=== PATIENT | male | born 1990 ===

== ENCOUNTER 2023-11-18 19:10 | Outpatient (REF) | payer BC, SELFPAY ==
--- OUTSIDE RECORDS SUMMARY | 2023-11-19 19:16 | XMS_ITS | Continuity of Care Document ---
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 [address], [place] [address] Encounter Diagnosis Viral illness(Discharge Diagnosis) - 12/10/21 Discharge Disposition: Home or Self Care Attending Physician: Myles Sim MD Admitting Physician: Myles Sim MD Allergies, Adverse Reactions, Alerts No Known Medication Allergies Assessment and Plan Diagnostic Tests Pending * Anaplasma phagocytophilum Ab -[place] 12/10/21 * Babesia microti Ab S-[place] 12/10/21 * Ehrlichia Chaffeensis (HME) Ab S-[place] 12/10/21 * Babesia species PCR B-[place] 12/10/21 * Borrelia miyamotoi PCR B-[place] 12/10/21 * Ehrlichia-Anaplasma PCR B-[place] 12/10/21 * Lyme Disease Ab, Western Blot-[place] 12/10/21 Mental Status 12/10/21 Orientation Assessment Oriented x 4 Problem List No Known Problems Results Laboratory List Name Date Lyme Disease Serology, Serum 12/10/21 Urinalysis Reflex Microscopic, Culture i f 12/10/21 Respiratory PCR Panel 12/10/21 .Estimated Glomerular Filtration Rate Auto Differential 12/10/21 CBC Auto Diff reflex Manual Diff 12/10/21 Comprehensive Metabolic Panel 12/10/21 Lactate Dehydrogenase (LDH) 12/10/21 SARS-CoV-2 & Influenza A/B (FLU/COVID PC R) 12/10/21 Most recent to oldest [Reference Range]: 1 2 Adenovirus PCR Not Detected *NA* (12/10/21 9:21 AM) Bordetella parapertussis ([id number]) PCR No t Detected *NA* (12/10/21 9:21 AM) Bordetella pertussis (ptxP) PCR Not Dete cted *NA* (12/10/21 9:21 AM) Chlamydia pneumoniae PCR Not Detected *NA* (12/10/21 9:21 AM) Coronavirus 229E PCR Not Detected *NA* (12/10/21 9:21 AM) Coronavirus HKU1 PCR Not Detected *NA* (12/10/21 9:21 AM) Coronavirus NL63 PCR Not Detected *NA* (12/10/21 9:21 AM) Coronavirus OC43 PCR Not Detected *NA* (12/10/21 9:21 AM) Human Metapneumovirus PCR Not Detected *NA* (12/10/21 9:21 AM) Human Rhinovirus/Enterovirus PCR Detecte d *ABN* (12/10/21 9:21 AM) Influenza A PCR Not Detected *NA* (12/10/21 9:21 AM) Influenza B PCR Not Detected *NA* (12/10/21 9:21 AM) Mycoplasma pneumoniae PCR Not Detected *NA* (12/10/21 9:21 AM) Parainfluenza Virus 1 PCR Not Detected *NA* (12/10/21 9:21 AM) Parainfluenza Virus 2 PCR Not Detected *NA* (12/10/21 9:21 AM) Parainfluenza Virus 3 PCR Not Detected *NA* (12/10/21 9:21 AM) Parainfluenza Virus 4 PCR Not Detected *NA* (12/10/21 9:21 AM) Respiratory Syncytial Virus PCR Not Dete cted *NA* (12/10/21 9:21 AM) Coronavirus SARS-CoV-2 [Not Detected] No t Detected 1 *NA* (12/10/21 9:21 AM) Not Detected 2 *NA* (12/10/21 7:20 AM) UA Appear Clear *NA* (12/10/21 12:21 PM) UA Bili Negative *NA* (12/10/21 12:21 PM) UA Blood Negative *NA* (12/10/21 12:21 PM) UA Color Yellow *NA* (12/10/21 12:21 PM) UA Glucose Negative *NA* (12/10/21 12:21 PM) UA Ketones 1+ *ABN* (12/10/21 12:21 PM) UA Leuk Est Negative *NA* (12/10/21 12:21 PM) UA Nitrite Negative *NA* (12/10/21 12:21 PM) UA Protein Negative *NA* (12/10/21 12:21 PM) UA Urobilinogen 0.2 3 (12/10/21 12:21 PM) Microscopic Indicated No *NA* (12/10/21 12:21 PM) AGAP 9 *NA* (12/10/21 8:46 AM) A/G Ratio 1.1 *NA* (12/10/21 8:46 AM) BUN/Creat Ratio 13 *NA* (12/10/21 8:46 AM) RBC [4.50-5.90 x10(6)/mcL] 4.49 x10(6)/m cL *LOW* (12/10/21 8:46 AM) RDW [11.5-14.5 %] 11.9 % (12/10/21 8:46 AM) Sodium Level [136-145 mmol/L] 135 mmol/L *LOW* (12/10/21 8:46 AM) Total Protein [6.4-8.2 gm/dL] 7.3 gm/dL (12/10/21 8:46 AM) AST [15-37 IU/L] 22 IU/L (12/10/21 8:46 AM) Bili Total [0.20-1.00 mg/dL] 1.13 mg/dL *HI* (12/10/21 8:46 AM) CO2 [21-32 mmol/L] 27 mmol/L (12/10/21 8:46 AM) UA pH [5.0-9.0] 6.0 (12/10/21 12:21 PM) Albumin Level [3.4-5.0 gm/dL] 3.9 gm/dL (12/10/21 8:46 AM) Alk Phos [45-117 unit/L] 63 unit/L (12/10/21 8:46 AM) ALT [13-61 IU/L] 29 IU/L (12/10/21 8:46 AM) Hct [41.0-53.0 %] 41.3 % (12/10/21 8:46 AM) Hgb [13.9-16.3 gm/dL] 14.2 gm/dL (12/10/21 8:46 AM) LDH [87-241 IU/L] 198 IU/L (12/10/21 8:46 AM) MCH [26.0-34.0 pg] 31.6 pg (12/10/21 8:46 AM) MCHC [31.0-37.0 gm/dL] 34.4 gm/dL (12/10/21 8:46 AM) MCV [80-100 fL] 92 fL (12/10/21 8:46 AM) MPV [9.2-12.7 fL] 10.0 fL (12/10/21 8:46 AM) Glucose Level [74-106 mg/dL] 138 mg/dL *HI* (12/10/21 8:46 AM) Platelet [150-350 x10(3)/mcL] 231 x10(3) /mcL (12/10/21 8:46 AM) Potassium Level [3.5-5.1 mmol/L] 4.1 mmo l/L (12/10/21 8:46 AM) UA Spec Grav [1.000-1.060] 1.012 (12/10/21 12:21 PM) WBC [4.5-11.0 x10(3)/mcL] 12.8 x10(3)/mc L *HI* (12/10/21 8:46 AM) BUN [7-18 mg/dL] 14 mg/dL (12/10/21 8:46 AM) Calcium Level [8.5-10.1 mg/dL] 8.9 mg/dL (12/10/21 8:46 AM) Chloride [98-107 mmol/L] 103 mmol/L (12/10/21 8:46 AM) eGFR AA >60 mL/min/1.73 m2 *NA* (12/10/21 8:46 AM) eGFR DAVE >60 mL/min/1.73 m2 *NA* (12/10/21 8:46 AM) Neutrophil Absolute [1.50-7.80 x10(3)/mc L] 11.31 x10(3)/mcL *HI* (12/10/21 8:46 AM) Lymphocyte Absolute [1.10-4.80 x10(3)/mc L] 0.68 x10(3)/mcL *LOW* (12/10/21 8:46 AM) Monocyte Absolute 0.73 x10(3)/mcL *NA* (12/10/21 8:46 AM) Eosinophil Absolute 0.04 x10(3)/mcL *NA* (12/10/21 8:46 AM) Basophil Absolute 0.02 x10(3)/mcL *NA* (12/10/21 8:46 AM) Imm Gran Absolute 0.06 /mcL *NA* (12/10/21 8:46 AM) NRBC % [0.0-0.2 %] 0.0 % (12/10/21 8:46 AM) Culture Indicated Not Indicated *NA* (12/10/21 12:21 PM) Osmol Calculated 273 mOsm/kg *NA* (12/10/21 8:46 AM) Eosinophil Auto [1.0-4.0 %] 0.3 % *LOW* (12/10/21 8:46 AM) Immature Granulocyte Auto 0 % *NA* (12/10/21 8:46 AM) Lymphocyte Auto [24.0-44.0 %] 5.3 % *LOW* (12/10/21 8:46 AM) Monocyte Auto [2.0-11.0 %] 5.7 % (12/10/21 8:46 AM) Neutrophil Auto [31.0-76.0 %] 88.0 % *HI* (12/10/21 8:46 AM) Basophil Auto [0.0-2.0 %] 0.2 % (12/10/21 8:46 AM) Creatinine [0.6-1.3 mg/dL] 1.1 mg/dL (12/10/21 8:46 AM) Lyme IgG Presumptive Pos 4 *NA* (12/10/21 12:31 PM) Lyme IgM Negative 5 *NA* (12/10/21 12:31 PM) Influenza A [Not Detected] Not Detected *NA* (12/10/21 7:20 AM) Influenza B [Not Detected] Not Detected 6 *NA* (12/10/21 7:20 AM) 1Result Comment: SARS CoV-2 Not Detected indicates that RNA was not present in the sample provided above the limit of detection. However, it does not rule out COVID-19 and should not be used as the sole basis for treatment or patient management decisions. The results of this test should be interpreted in combination with clinical observations, patient history, and epidemiological information. 2Result Comment: EUA/IVD Coronavirus SARS CoV-2 PCR test performed on Wayne Tara 1. SARS CoV-2 Not Detected indicates that RNA was not present in the sample provided above the limit of detection. However, it does not rule out COVID-19 and should not be used as the sole basis for treatment or patientmanagement decisions. The results of this test should be interpreted in combination with clinical observations, patient history, and epidemiological information. 3Result Comment: Urobilinogen result is equal to the Semiquantitative Result of: NORMAL 4Result Comment: Presumptive detection of anti-B. burgdorferi IgG antibodies. The specimen is being sent to reference lab for supplementary Western Blot testing in accordance with CDC/APHL recommendations 5Result Comment: No detectable anti-B. burgdorferi IgM antibodies. This result does not exclude the possibility of B. burgdoferi infection. Patients in early stages of infection or who have undergone antibiotic therapy may not produce detectable levels of antibody. Patients with symptoms suggestive of Lyme disease or where early Lyme disease is suspected but with negative test results should be retested in 2-4 weeks. 6Result Comment: EUA/IVD Vital Signs Most recent to oldest [Reference Range]: 1 2 3 Temperature Oral [35.8-37.3 DegC] 37.2 DegC (12/10/21 9:57 AM) 36.9 DegC (12/10/21 7:06 AM) Peripheral Pulse Rate [60-100 bpm] 66 bpm (12/10/21 12:14 PM) 78 bpm (12/10/21 9:57 AM) 78 bpm (12/10/21 9:15 AM) Heart Rate Monitored [60-100 bpm] 66 bpm (12/10/21 12:14 PM) 79 bpm (12/10/21 9:57 AM) 71 bpm (12/10/21 9:15 AM) Respiratory Rate [14-20 br/min] 17 br/min (12/10/21 12:14 PM) 14 br/min (12/10/21 9:57 AM) 16 br/min (12/10/21 9:15 AM) Blood Pressure [90-140/60-90 mmHg] 99/73mmHg (12/10/21 12:14 PM) 104/62mmHg (12/10/21 9:57 AM) 92/56mmHg (12/10/21 9:15 AM) Mean Arterial Pressure, Cuff 79 mmHg (12/10/21 12:14 PM) 74 mmHg (12/10/21 9:57 AM) 68 mmHg (12/10/21 9:15 AM) Blood Pressure 110/54mmHg (12/10/21 7:06 AM) Social History Social History Type Response Sex Male Hospital Discharge Instructions Patient Education 12/10/2021 11:54:41 Viral Illness, Adult Viral Illness, Adult Viruses are tiny germs that can get into a person's body and cause illness. There are many different types of viruses, and they cause many types of illness. Viral illnesses can range from mild to severe. They can affect various parts of the body. Common illnesses that are caused by a virus include colds and the flu. Viral illnesses also includeserious conditions such as HIV/AIDS (human immunodeficiency virus/acquired immunodeficiency syndrome). A few viruses have been linked to certain cancers. What are the causes? Many types of viruses can cause illness. Viruses invade cells in your body, multiply, and cause theinfected cells to malfunction or . When the cell dies, it releases more of the virus. When this happens, you develop symptoms of the illness, and the virus continues to spread to other cells. If the virus takes over the function of the cell, it can cause the cell to divide and grow out of control, as is the case when a virus causes cancer. Different viruses get into the body in different ways. You can get a virus by: ??? Swallowing food or water that is contaminated with the virus. ??? Breathing in droplets that have been coughed or sneezed into the air by an infected person. ??? Touching a surface that has been contaminated with the virus and then touching your eyes, nose,or mouth. ??? Being bitten by an insect or animal that carries the virus. ??? Having sexual contact with a person who is infected with the virus. ??? Being exposed to blood or fluids that contain the virus, either through an open cut or during atransfusion. If a virus enters your body, your body's defense system (immune system) will try to fight the virus. You may be at higher risk for a viral illness if your immune system is weak. What are the signs or symptoms? Symptoms vary depending on the type of virus and the location of the cells that it invades. Common symptoms of the main types of viral illnesses include: Cold and flu viruses ??? Fever. ??? Headache. ??? Sore throat. ??? Muscle aches. ??? Nasal congestion. ??? Cough. Digestive system (gastrointestinal) viruses ??? Fever. ??? Abdominal pain. ??? Nausea. ??? Diarrhea. Liver viruses (hepatitis) ??? Loss of appetite. ??? Tiredness. ??? Yellowing of the skin (jaundice). Brain and spinal cord viruses ??? Fever. ??? Headache. ??? Stiff neck. ??? Nausea and vomiting. ??? Confusion or sleepiness. Skin viruses ??? Warts. ??? Itching. ??? Rash. Sexually transmitted viruses ??? Discharge. ??? Swelling. ??? Redness. ??? Rash. How is this treated? Viruses can be difficult to treat because they live within cells. Antibiotic medicines do not treatviruses because these drugs do not get inside cells. Treatment for a viral illness may include: ??? Resting and drinking plenty of fluids. ??? Medicines to relieve symptoms. These can include pids-obc-ijnszur medicine for pain and fever, medicines for cough or congestion, and medicines to relieve diarrhea. ??? Antiviral medicines. These drugs are available only for certain types of viruses. They may helpreduce flu symptoms if taken early. There are also many antiviral medicines for hepatitis and HIV/AIDS. Some viral illnesses can be prevented with vaccinations. A common example is the flu shot. Follow these instructions at home: Medicines ??? Take [id number] and prescription medicines only as told by your health care provider. ??? If you were prescribed an antiviral medicine, take it as told by your health care provider. Do not stop taking the medicine even if you start to feel better. ??? Be aware of when antibiotics are needed and when they are not needed. Antibiotics do not treat viruses. If your health care provider thinks that you may have a bacterial infection as well as a viral infection, you may get an antibiotic. ??? Do not ask for an antibiotic prescription if you have been diagnosed with a viral illness. Thatwill not make your illness go away faster. ??? Frequently taking antibiotics when they are not needed can lead to antibiotic resistance. When this develops, the medicine no longer works against the bacteria that it normally fights. General instructions ??? Drink enough fluids to keep your urine clear or pale yellow. ??? Rest as much as possible. ??? Return to your normal activities as told by your health care provider. Ask your health care provider what activities are safe for you. ??? Keep all follow-up visits as told by your health care provider. This is important. How is this prevented? Take these actions to reduce your risk of viral infection: ??? Eat a healthy diet and get enough rest. ??? Wash your hands often with soap and water. This is especially important when you are in public places. If soap and water are not available, use hand plant superintendent. ??? Avoid close contact with friends and family who have a viral illness. ??? If you travel to areas where viral gastrointestinal infection is common, avoid drinking water or eating raw food. ??? Keep your immunizations up to date. Get a flu shot every year as told by your health care provider. ??? Do not share toothbrushes, nail clippers, razors, or needles with other people. ??? Always practice safe sex. Contact a health care provider if: ??? You have symptoms of a viral illness that do not go away. ??? Your symptoms come back after going away. ??? Your symptoms get worse. Get help right away if: ??? You have trouble breathing. ??? You have a severe headache or a stiff neck. ??? You have severe vomiting or abdominal pain. This information is not intended to replace advice given to you by your health care provider. Make sure you discuss any questions you have with your health care provider. Document Revised: 04/29/2018 Document Reviewed: 09/25/2016 [employer] Patient Education ?? 2020 [employer] Care Team Care Team Personnel Name: No Local PCP No Local PCP, Med Service: NO LOCAL PCP Member Role: Primary Care Physician Care Team Related Persons Name: DARVIN ANGUIANO Address: Home [address] [place] [phone]
== END 2023-11-18 19:11 | disposition home or self-care (01) ==
LOC: LBN 19:10
PROVIDERS: Visit Provider Physician Assistant Medical
DX: L02.415 Cutaneous abscess of right lower limb (principal)
CPT/HCPCS: 87077; 87070; 87186; 87205